=== PATIENT | male | born 1950 | race Caucasian/White ===

== ENCOUNTER → 2018-10-30 | Outpatient (CLI) | payer MEDICARE, OTHER ==
[~2018-10-30] MED LIST: ALLO300 PO; Felodipine ER5 MG PO; Hydrocodone-Ap1 EA23 PO; K-Dur20 MEQ; MICROZIDE12.5 MG; NAPR500 PO; Prilosec Otc20 MG; SERT100 PO; Simvastatin20 MG PO; Zestril40 MG
== END | disposition home or self-care (01) ==
LOC: PLD 11:02 → LAB SHORT 11:02
DX: D48.5 Neoplasm of uncertain behavior of skin (principal)
CPT/HCPCS: 88305

== ENCOUNTER 2021-11-11 07:55 | Day surgery (SDC) | payer MEDICARE, OTHER ==
[~2021-11-11] VITALS: Ht 182.9 cm; Wt 102.1 kg
== END 2021-11-11 09:41 | disposition home or self-care (01) ==
LOC: ORSCSDS 07:55
PROVIDERS: Anesthesiology
PROC: 3E0R33Z Introduction of Anti-inflammatory into Spinal Canal, Percutaneous Approach (ICD-10-PCS; principal; 2021-11-11 09:00)
DX: M51.16 Intervertebral disc disorders with radiculopathy, lumbar region (principal); I10 Essential (primary) hypertension; F32.A Depression, unspecified; E78.00 Pure hypercholesterolemia, unspecified; K21.9 Gastro-esophageal reflux disease without esophagitis; Z87.891 Personal history of nicotine dependence; E66.9 Obesity, unspecified; Z68.30 Body mass index [BMI] 30.0-30.9, adult; Z79.899 Other long term (current) drug therapy
CPT/HCPCS: J1040

== ENCOUNTER → 2022-04-15 | Outpatient (CLI) | payer MEDICARE, OTHER | LOC: LAB 11:25 → LAB SHORT 11:25 → PLD 11:25 | DX: D48.5 Neoplasm of uncertain behavior of skin (principal) | CPT/HCPCS: 88305 ==

== ENCOUNTER 2025-05-21 08:22 | Day surgery (SDC) | payer MEDICARE, OTHER ==
[~2025-05-21] VITALS: Ht 180.3 cm; Wt 97.1 kg
[2025-05-21] VITALS (11 sets, daily range): BP systolic 130–163; BP diastolic 66–81
[~2025-05-21 08:22] MED LIST changes: +ALDACTONE100 MG PO; +Aspir 8181 MG PO; +IMBRUVICA420 MG PO; +OMEP20ER PO; -Prilosec Otc20 MG; +ROSUVASTATIN CAL5 MG PO
[2025-05-21] MEDS ORDERED: CeFAZolin Sodium 2,000 MG in NS 100 ML IV SCH (08:40)
[2025-05-21] MEDS ORDERED: DOCU100 PO (09:18)
[2025-05-21] MEDS ORDERED: CeFAZolin Sodium 2,000 MG VIAL ONE (09:52)
[2025-05-21] MEDS ORDERED: Bupivacaine 0.5% HCl 5 MG/ML 30MLVIAL ONE (09:52)
[2025-05-21] MEDS ORDERED: FentaNYL Citrate 50 MCG/ML 2 ML Injection ONE (09:56)
[2025-05-21] MEDS ORDERED: Rocuronium Bromide 10 MG/ML 5ML Injection IV ONE (09:58)
[2025-05-21] MEDS ORDERED: Ondansetron HCl 2 MG / ML 2ML Vial ONE (10:21)
[2025-05-21] MEDS ORDERED: Dexamethasone Sod Phos 10 MG/ML 1ML VIAL ONE (10:21)
[2025-05-21] MEDS ORDERED: Ondansetron HCl 2 MG / ML 2ML Vial IV PRN (10:35)
[2025-05-21] MEDS ORDERED: FentaNYL Citrate 50 MCG/ML 2 ML Injection IV PRN ×2 (10:35)
[2025-05-21] MEDS ORDERED: HYDROmorphone HCl/Pf 1MG SYR IV PRN ×2 (10:35)
[2025-05-21] MEDS ORDERED: Sugammadex Sodium 200 MG/2ML SDV (100 MG/ML) ONE (10:58)
[2025-05-21] MEDS ORDERED: HYDROcodone 5-APAP 325 TAB PO PRN (11:20)
--- NOTE | 2025-05-21 12:58 | NUR ---
Discharge instructions reviewed with patient. Patient verbalizes understanding. Copy given to patient to take home. Dressing X1 c/d/i. ABD binder in place. 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 Some Petechiae noted on pt's face. Clarfied with , stated pt had been coughing quite a bit post as the likely source. Patient States Post-Procedure ride home has been arranged. Discharged via wheelchair to private car for ride home.
== END 2025-05-21 12:50 | disposition home or self-care (01) ==
LOC: ORSCMMR 08:22 → ORD 08:45 → ORSCMMR 09:45 → ORD 09:45 → ORSCMMR 12:50
PROVIDERS: Surgery
PROC: 0WUF0JZ Supplement Abdominal Wall with Synthetic Substitute, Open Approach (ICD-10-PCS; principal; 2025-05-21 09:45)
DX: K42.9 Umbilical hernia without obstruction or gangrene (principal); I12.9 Hypertensive chronic kidney disease with stage 1 through stage 4 chronic kidney disease, or unspecified chronic kidney disease; N18.9 Chronic kidney disease, unspecified; K21.9 Gastro-esophageal reflux disease without esophagitis; Z79.899 Other long term (current) drug therapy
CPT/HCPCS: A9270; C1781; J0690; J1100; J2405; J2704; J3010; J7120